=== PATIENT | female | born 1935 | race Native Hawaiian/Other Pacific Islander ===

== ENCOUNTER 2019-04-09 03:06 | Emergency (ER) | payer OTHER ==
[~2019-04-09] VITALS: Ht 154.9 cm; Wt 59.0 kg
[2019-04-09 03:24] LABS: PLATELET COUNT 232 K/uL (152-353)
[2019-04-09 03:26] LABS: POTASSIUM 4.8 mmol/L (3.6-5.2)
[2019-04-09 04:28] VITALS: BP 112/59; TEMP 97.5
[2019-04-09] MEDS ORDERED: NAMENDA5 MG PO (05:03)
[2019-04-09] MEDS ORDERED: DONE5TAB PO (05:08)
[2019-04-09] MEDS ORDERED: MELATONIN3 M1 PO (05:10)
[2019-04-09] MEDS ORDERED: CLONIDINE HYDR0.1 M2 PO ×2 (05:25→05:41)
[2019-04-09] MEDS ORDERED: ESCITALOPRAM10 MG PO (05:26)
[2019-04-09] MEDS ORDERED: LACTULOSE10 GM/15 M PO (05:28)
[2019-04-09] MEDS ORDERED: LEVOTHYROXINE PO (05:30)
[2019-04-09] MEDS ORDERED: TYLENOL325 MG PO (05:33)
[2019-04-09] MEDS ORDERED: [UNRECOGNIZED DRUG - CODE] PO (05:35)
[2019-04-09] MEDS ORDERED: BISCOLAX10 MG RE (05:38)
[2019-04-09] MEDS ORDERED: ALPR0.2566 PO (05:42)
[2019-04-09] MEDS ORDERED: BUSPIRONE10 MG PO (05:44)
== END 2019-04-09 04:28 ==
LOC: ED 03:06
PROVIDERS: Emergency Medicine
DX: F03.91 Unspecified dementia, unspecified severity, with behavioral disturbance (principal); R00.1 Bradycardia, unspecified; Z04.6 Encounter for general psychiatric examination, requested by authority
CPT/HCPCS: 36415; 80053; 85027; 93005; 99285

== ENCOUNTER 2019-06-10 23:58 | Emergency (ER) | payer OTHER ==
[~2019-06-10] VITALS: Ht 160 cm; Wt 54.4 kg
[~2019-06-10 23:58] MED LIST: ALPR0.2566 PO; BISCOLAX10 MG RE; BUSPIRONE10 MG PO; CLONIDINE HYDR0.1 M2 PO; DIVA125C PO; DIVALPROEX500 MG PO; DONE5TAB PO; ESCI10TA PO; ESCITALOPRAM10 MG PO; LACTULOSE10 GM/15 M PO; LEVO0.0529 PO; LEVOTHYROXINE PO; MELATONIN3 M1 PO; NAMENDA5 MG PO; OLANZAPINE5 MG PO; TRAZ50TA36 PO; TYLENOL325 MG PO; [UNRECOGNIZED DRUG - CODE] PO
[2019-06-11 01:04] LABS: POTASSIUM 5.1 mmol/L (3.6-5.2)
[2019-06-11 01:10] LABS: PLATELET COUNT 232 K/uL (152-353)
[2019-06-11 02:27] VITALS: BP 164/72; TEMP 98.1
[2019-06-11] MEDS ORDERED: [UNRECOGNIZED DRUG - OTHER] PO (02:32)
[2019-06-11] MEDS ORDERED: DIVA250T PO (02:35)
[2019-06-11] MEDS ORDERED: ESCI20TA PO (02:36)
[2019-06-11] MEDS ORDERED: HALO50IN4 IM (02:38)
[2019-06-11] MEDS ORDERED: IMODIUM A-D2 MG PO (02:40)
[2019-06-11] MEDS ORDERED: OLANZAPINE5 MG PO (02:41)
[2019-06-11] MEDS ORDERED: TIROSINT25 MCG PO (02:41)
[2019-06-11] MEDS ORDERED: TRAZ50TA36 PO (02:42)
== END 2019-06-11 02:28 | disposition other institution (70) ==
LOC: ED 23:58
PROVIDERS: Emergency Medicine
DX: F28 Other psychotic disorder not due to a substance or known physiological condition (principal); Z04.6 Encounter for general psychiatric examination, requested by authority
CPT/HCPCS: 36415; 80053; 81000; 85027; 93005; 99285

== ENCOUNTER 2019-06-14 16:44 | Emergency (ER) | payer OTHER ==
[~2019-06-14] VITALS: Ht 157.5 cm; Wt 55.8 kg
[~2019-06-14 16:44] MED LIST changes: +DIVA250T PO; +ESCI20TA PO; +HALO50IN4 IM; +IMODIUM A-D2 MG PO; +TIROSINT25 MCG PO; +[UNRECOGNIZED DRUG - OTHER] PO
[2019-06-14 17:32] LABS: PLATELET COUNT 250 K/uL (152-353)
[2019-06-14 17:44] LABS: SODIUM 139 mmol/L (136-145)
[2019-06-14 17:46] LABS: POTASSIUM 5.6 mmol/L (3.6-5.2)
[2019-06-14 18:27] LABS: PARTIAL THROMBOPLASTIN TIME 23.7 SECONDS (24.5-33.6)
[2019-06-14 19:02] VITALS: BP 102/78; TEMP 98.2
== END 2019-06-14 19:02 ==
LOC: ED 16:44
PROVIDERS: Hospitalist
DX: T17.820A Food in other parts of respiratory tract causing asphyxiation, initial encounter (principal); T17.828A Food in other parts of respiratory tract causing other injury, initial encounter; I45.19 Other right bundle-branch block
CPT/HCPCS: 36600; 80053; 80164; 82550; 82805; 83880; 84484; 85027; 85610; 85730; 93005; 94664; 96374; 99284; J2405